=== PATIENT | female | born 1950 | race Two or more races ===

== ENCOUNTER 2023-05-01 21:30 | Emergency (ER) | payer OTHER, SELFPAY ==
[2023-05-01 21:32] VITALS: BP 169/87; PULSE 101; RESP 18; TEMP 36.6; O2SAT 99; BMI 20.3
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
[2023-05-01 23:16] VITALS: BP 169/87; PULSE 101; RESP 18; TEMP 36.6; O2SAT 99
== END 2023-05-01 23:26 | disposition home or self-care (01) ==
LOC: ED 23:04
PROVIDERS: Emergency Provider Emergency Medicine; PCP Internal Medicine; Visit Provider Emergency Medicine
DX: T22.112A Burn of first degree of left forearm, initial encounter (principal); T22.111A Burn of first degree of right forearm, initial encounter; T23.131A Burn of first degree of multiple right fingers (nail), not including thumb, initial encounter; T20.19XA Burn of first degree of multiple sites of head, face, and neck, initial encounter; X10.2XXA Contact with fats and cooking oils, initial encounter; Y93.G3 Activity, cooking and baking; Y99.0 Civilian activity done for income or pay; Y92.214 College as the place of occurrence of the external cause
CPT/HCPCS: 99282